=== PATIENT | female | born 2000 | race African-American/Black ===

== ENCOUNTER 2019-06-30 21:02 | Emergency (ER) | payer OTHER ==
--- NOTE | 2019-06-30 21:11 | ED Physician Documentation ---
General Adult - HISTORIAN Historian: patient - HPI Stated Complaint: abdominal "swelling" Chief Complaint: General Adult Onset: other (not sure on timing ) Timing: still present Severity: mild Further Comments: yes (She states she is on medicaiton for "infection" although she is here now for "it feels swollen" - she indicates with pointing to abdomen and she states that she has no pain. She denies any cramping. Denies any loss of fluid. Denies any pressure in her vagina or rectum. Denies any other complaints.) - ROS CONST: no problems GI/: denies: abdominal pain, problems urinating, vomiting, nausea MS/SKIN/LYMPH: none NEURO/PSYCH: denies: headache - PAST HX Past History: hypertension (only with and gestational diabetes which per her report is controlled ) Allergies/Adverse Reactions: Allergies Allergy/AdvReac Type Severity Reaction Status Date / Time No Known Allergies Allergy Verified 06/30/19 22:28 Home Medications: Ambulatory Orders Medication Instructions Recorded Nitrofurantoin Macrocrystal 25 mg PO DAILY 06/30/19 [Nitrofurantoin] Valacyclovir HCl [Valacyclovir] 1 tab PO DAILY 06/30/19 - SOCIAL HX Smoking History: non-smoker Alcohol Use: none Drug Use: none - FAMILY HX Family History: No - REVIEWED ASSESSMENTS Nursing Assessment Reviewed: Yes Vitals Reviewed: Yes General Adult Physical Exam - PHYSICAL EXAM GENERAL APPEARANCE: mild distress EENT: eye inspection normal, no signs of dehydration NECK: normal inspection RESPIRATORY: no resp distress, chest non-tender, breath sounds normal CVS: reg rate & rhythm, heart sounds normal ABDOMEN: soft, normal bowel sounds, no distension, non-tender BACK: normal inspection SKIN: warm/dry, normal color EXTREMITIES: non-tender, normal range of motion, no evidence of injury, no edema NEURO: oriented X3 Discharge Clincal Impression: UTI (urinary tract infection) during Qualifiers: Trimester: third trimester Qualified Code(s): O23.43 - Unspecified infection of urinary tract in , third trimester Referrals: Primary Doctor,No [Primary Care Provider] - 2 Days Comments: 1. Continued meds 2. Increase fluids 3. GO TO YOUR DR on your appt Tuesday 4. IF you feel any changes, leaking of fluid, decrease in baby movement or cramps go to the nearest ER Condition: Stable Disposition: 01 HOME, SELF-CARE Decision to Admit: NO Date of Decison to Admit: 06/30/19 Decision Time: 22:27
[2019-06-30 23:15] VITALS: BP 143/81
[2019-07-02 07:54] LABS: APPEARANCE,URINE CLEAR (CLEAR); COLOR,URINE YELLOW (YELLOW); OCCULT BLOOD,URINE NEGATIVE (NEGATIVE); PH URINE 6.5 (5.0 - 8.0)
== END 2019-06-30 22:30 | disposition home or self-care (01) ==
LOC: ED 21:02
DX: O23.43 Unspecified infection of urinary tract in pregnancy, third trimester (principal); Z3A.00 Weeks of gestation of pregnancy not specified
CPT/HCPCS: 81002; 99281; 99282